=== PATIENT | female | born 1980 | race Caucasian/White ===

== ENCOUNTER 2016-10-15 15:01 | Emergency (ER) | payer OTHER, BC ==
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
[2016-10-15 15:37] VITALS: BP 147/87
[2016-10-15 15:57] LABS: CHLORIDE,CL 101 mmol/L (101-111); SODIUM,NA 135 mmol/L (135-145)
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
[2016-10-15] MEDS ORDERED: Ketorolac 30 MG/ML SDV IM ONE (17:16)
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
== END 2016-10-15 18:23 | disposition home or self-care (01) ==
LOC: DL.ED 15:01
DX: S39.012A Strain of muscle, fascia and tendon of lower back, initial encounter (principal); S16.1XXA Strain of muscle, fascia and tendon at neck level, initial encounter; Z90.49 Acquired absence of other specified parts of digestive tract; Z88.0 Allergy status to penicillin; Z88.1 Allergy status to other antibiotic agents; V87.7XXA Person injured in collision between other specified motor vehicles (traffic), initial encounter
CPT/HCPCS: 36415; 72072; 72100; 72125; 80053; 81001; 84703; 85025; 96372; 99285; J1885; J2360

== ENCOUNTER 2019-11-23 11:01 | Emergency (ER) | payer OTHER, BC ==
[2019-11-23 11:20] VITALS: BP 124/83; PULSE 81
[2019-11-23] MEDS ORDERED: Diphtheria,Pertussis(Acell),Tetanus Vaccine 0.5 ML SDV IM ONE (11:20)
[2019-11-23] MEDS ORDERED: Ondansetron 4 MG/2 ML SDV IVPUSH ONE (11:20)
--- NOTE | 2019-11-23 11:30 | EDM.PDOC ---
ED HPI GENERAL MEDICAL PROBLEM - General Chief Complaint: Bite:Animal, Insect Stated Complaint: CAT BITE Time Seen by Provider: 11/23/19 11:15 Source of Information: Reports: Patient History Limitations: Reports: No Limitations - History of Present Illness INITIAL COMMENTS - FREE TEXT/NARRATIVE: This 39 yo female patient reports to the ED due to a cat bite yesterday with swelling of her hand and finger. The patient reports she works at the [employer] and was bitten by a cat yesterday while at work. The patient did clean the wound immediately after the injury, but has noticed increased swelling since the time of the bite. The patient reports she is allergic to penicillin. The patient also reports she is feeling nauseated today. The patient reports the cat was not vaccinated until yesterday, but would be watched and does not want to start RIG and rabies injections. Onset Date: 11/22/19 Duration: Constant, Getting Worse Location: Reports: Upper Extremity, Left Quality: Reports: Ache, Dull Severity: Moderate Improves with: Reports: None Worsens with: Reports: None Context: Reports: Other Associated Symptoms: Reports: No Other Symptoms Left Finger-Index Pain Score (Numeric/FACES): 3 - Related Data Allergies Allergy/AdvReac Type Severity Reaction Status Date / Time ciprofloxacin Allergy Nausea Verified 11/23/19 12:01 erythromycin base Allergy Cannot Verified 11/23/19 12:01 Remember Penicillins Allergy Cannot Verified 11/23/19 12:01 Remember Home Meds: Home Meds Dexlansoprazole [Dexilant] 60 mg PO DAILY 10/15/16 [History] Vit Calc,Iron,Folic [ Vitamins] 1 each PO DAILY 10/15/16 [ History] Propranolol HCl [Propranolol HCl ER] 120 mg PO DAILY 11/23/19 [History] Venlafaxine HCl [Venlafaxine ER] 75 mg PO DAILY 11/23/19 [History] estradioL [Estradiol] 1 mg PO DAILY 11/23/19 [History] Past Medical History [employer] History: Reports: Neurological History: Reports: Migraines - Infectious Disease History Infectious Disease History: Reports: Chicken Pox - Past Surgical History GI Surgical History: Reports: Cholecystectomy Social & Family History - Family History Family Medical History: Noncontributory Musculoskeletal: Reports: Neck Pain, Chronic - Caffeine Use Caffeine Use: Reports: Coffee ED ROS GENERAL - Review of Systems Review Of Systems: Comprehensive ROS is negative, except as noted in HPI. ED EXAM, ANIMAL BITE - Physical Exam Exam: See Below Exam Limited By: No Limitations General Appearance: Alert, WD/WN, Moderate Distress Eye Exam: Bilateral Eye: EOMI, Normal Inspection, PERRL Ears: Normal External Exam, Normal Canal, Hearing Grossly Normal, Normal TMs Nose: Normal Inspection, Normal Mucosa, No Blood Throat/Mouth: Normal Inspection, Normal Lips, Normal Teeth, Normal Gums, Normal Oropharynx, Normal Voice, No Airway Compromise Head: Atraumatic, Normocephalic Neck: Normal Inspection, Supple, Non-Tender, Full Range of Motion Respiratory/Chest: No Respiratory Distress, Lungs Clear, Normal Breath Sounds, No Accessory Muscle Use, Chest Non-Tender Cardiovascular: Normal Peripheral Pulses, Regular Rate, Rhythm, No Edema, No Gallop, No JVD, No Murmur, No Rub GI/Abdominal: Normal Bowel Sounds, Soft, Non-Tender, No Organomegaly, No Distention, No Abnormal Bruit, No Mass (Female) Exam: Deferred Rectal (Female) Exam: Deferred Back Exam: Normal Inspection, Full Range of Motion, NT Extremities: Arm Pain (left hand pain) Neurological: Alert, Oriented, CN II-XII Intact, Normal Cognition, Normal Gait, Normal Reflexes, No Motor/Sensory Deficits Psychiatric: Normal Affect Skin Exam: Warm/Dry, DRY, I, Normal Color, NR Lymphatic: No Adenopathy Course - Vital Signs Last Recorded V/S: Last Vital Signs Temp 36.4 C 11/23/19 11:05 Pulse 81 11/23/19 11:05 Resp 18 11/23/19 11:05 BP 124/83 11/23/19 11:05 Pulse Ox 96 11/23/19 11:05 - Orders/Labs/Meds Orders: Active Orders 24 hr Category Date Time Status Vaccines to be Administered [RC] PER UNIT ROUTINE Care 11/23/19 11:20 Ordered Meds: Medications Discontinued Medications Generic Name Dose Route Start Last Admin Trade Name Freq PRN Reason Stop Dose Admin Diphtheria/Tetanus/Acell Pertussis 0.5 ml 11/23/19 11:20 11/23/19 11:40 Adacel IM 11/23/19 11:21 0.5 ml .ONCE ONE Administration Clindamycin Phosphate 300 mg/ 52 mls @ 100 mls/hr 11/23/19 11:23 11/23/19 12: 22 Sodium Chloride IV 11/23/19 11:54 Infused ONETIME ONE Infusion Clindamycin Phosphate 300 mg/ 52 mls @ 100 mls/hr 11/23/19 11:34 11/23/19 11: 44 Sodium Chloride IV 11/23/19 11:54 Not Given ONETIME ONE Ondansetron HCl 4 mg 11/23/19 11:20 11/23/19 11:41 Zofran IVPUSH 11/23/19 11:21 4 mg ONETIME ONE Administration Departure - Departure Time of Disposition: 12:30 Disposition: Home, Self-Care 01 Condition: Fair Clinical Impression: Cat bite of left hand including fingers with infection Qualifiers: Encounter type: initial encounter Qualified Code(s): S61.452A - Open bite of left hand, initial encounter; L08.9 - Local infection of the skin and subcutaneous tissue, unspecified; W55.01XA - Bitten by cat, initial encounter - Discharge Information *PRESCRIPTION DRUG MONITORING PROGRAM REVIEWED*: Not Applicable *COPY OF PRESCRIPTION DRUG MONITORING REPORT IN PATIENT MURALI: Not Applicable Instructions: Animal Bite, Adult, [id number] Forms: ED Department Discharge Care Plan Goals: The patient was advised of the examination results during the visit. The patient was given an IV dose of Clindamycin and IV Zofran while in the ED. The patient was discharged with a script for Clindamycin (300 mg) #40 to take 1 by mouth 4 times per day for 10 days and Bactrim DS #20 to take 1 by mouth 2 times per day for 10 days. The patient was also give a note for return to work on . If the patient has any additional symptoms or concerns, the patient should either return to the emergency department or visit her primary care facility. Sepsis Event Note - Evaluation Sepsis Screening Result: No Definite Risk - Focused Exam Vital Signs: Vital Signs Temp Pulse Resp BP Pulse Ox 11/23/19 11:05 36.4 C 81 18 124/83 96 Date Exam was Performed: 11/23/19 Time Exam was Performed: 12:30 - My Orders Last 24 Hours: My Active Orders 11/23/19 11:20 Vaccines to be Administered [RC] PER UNIT ROUTINE - Assessment/Plan Last 24 Hours: My Active Orders 11/23/19 11:20 Vaccines to be Administered [RC] PER UNIT ROUTINE
== END 2019-11-23 12:39 | disposition home or self-care (01) ==
LOC: DL.ED 11:01
DX: S61.251A Open bite of left index finger without damage to nail, initial encounter (principal); L08.9 Local infection of the skin and subcutaneous tissue, unspecified; Z23 Encounter for immunization; G43.909 Migraine, unspecified, not intractable, without status migrainosus; Z88.1 Allergy status to other antibiotic agents; Z88.0 Allergy status to penicillin; Z79.899 Other long term (current) drug therapy; W55.01XA Bitten by cat, initial encounter; Y99.0 Civilian activity done for income or pay; Y92.89 Other specified places as the place of occurrence of the external cause
CPT/HCPCS: 90471; 90715; 96365; 96375; 99283; J2405; J3490; J7050

== ENCOUNTER 2022-05-31 10:17 | Emergency (ER) | payer BC ==
[2022-05-31 11:13] VITALS: BP 131/100; PULSE 82
== END 2022-05-31 11:28 | disposition home or self-care (01) ==
LOC: DL.ED 10:17
DX: N39.0 Urinary tract infection, site not specified (principal); B37.41 Candidal cystitis and urethritis; Z88.1 Allergy status to other antibiotic agents; Z88.0 Allergy status to penicillin; Z79.899 Other long term (current) drug therapy; Z90.49 Acquired absence of other specified parts of digestive tract
CPT/HCPCS: 81001; 81025; 87086; 87088; 87186; 99283